=== PATIENT | female | born 1950 | race Caucasian/White ===

== ENCOUNTER 2017-01-23 10:30 | Outpatient (CLI) | payer MEDICARE ==
--- NOTE | 2017-01-23 12:01 | MMO ---
RIGHT DIAGNOSTIC MAMMOGRAM: Date: 01/23/17 COMPARISON: 07/10/16, 06/28/16, 06/28/15, and 11/12/13. HISTORY: 6 month follow-up for density noted within the right breast on prior imaging. FINDINGS: This patient's mammogram was interpreted with the assistance of computer-aided detection. Scattered fibroglandular densities are present. Benign calcifications noted bilaterally. There is a circumscribed stable retroareolar mass in the inferomedial aspect of the retroareolar reg ion, unchanged when compared to numerous prior mammograms. The area of asymmetry identified on prior diagnostic mammography within the medial aspect of the rig ht breast is less conspicuous on today's examination when compared to the most recent prior exam. It has an appearance similar to numerous old prior mammograms. No new findings are seen. IMPRESSION: BIRADS 3: Probably Benign Finding - Short-Interval Follow-Up Suggested Recommend bilateral diagnostic mammogram in 6 months. Facility will notify patient of need for additional imaging services. POS: [facility]
== END 2017-01-23 10:31 | disposition home or self-care (01) ==
LOC: MAMMO 10:30
PROVIDERS: ATTEND Obstetrics & Gynecology
DX: R92.8 Other abnormal and inconclusive findings on diagnostic imaging of breast (principal)
CPT/HCPCS: G0206-RT

== ENCOUNTER 2017-06-11 10:53 | Outpatient (CLI) | payer MEDICARE ==
--- NOTE | 2017-06-11 11:21 | RAD ---
PA AND LATERAL CHEST: History: Dyspnea. Comparison: 05-31-16 FINDINGS: The lung reddy are clear. No infiltrate or vascular congestion. Heart and mediastinum unremarkable. IMPRESSION: No acute abnormality identified. POS: [facility]
== END 2017-06-11 10:54 | disposition home or self-care (01) ==
LOC: RAD 10:53
PROVIDERS: ATTEND Internal Medicine Critical Care Medicine
DX: R06.00 Dyspnea, unspecified (principal)
CPT/HCPCS: 71046

== ENCOUNTER 2017-11-13 09:59 | Outpatient (CLI) | payer MEDICARE | END 2017-11-13 10:00 | disposition home or self-care (01) | LOC: BICMAMMO 09:59 | PROVIDERS: ATTEND Obstetrics & Gynecology | DX: N64.89 Other specified disorders of breast (principal); Z80.3 Family history of malignant neoplasm of breast | CPT/HCPCS: 77066; G0279 ==

== ENCOUNTER 2018-05-15 10:34 | Outpatient (CLI) | payer MEDICARE, OTHER ==
--- NOTE | 2018-05-15 10:58 | RAD ---
TWO VIEWS CHEST: Comparison: 06-11-17 History: Dyspnea. FINDINGS: Two views of the chest show normal sized cardiomediastinal silhouette. There is no evidence of consol idation, mass, or pleural effusion. The bones are unremarkable. IMPRESSION: No evidence of acute cardiopulmonary disease. POS: [facility]
== END 2018-05-15 10:35 | disposition home or self-care (01) ==
LOC: RAD 10:34
PROVIDERS: ATTEND Internal Medicine Critical Care Medicine
DX: R06.00 Dyspnea, unspecified (principal)
CPT/HCPCS: 71046

== ENCOUNTER 2018-08-27 09:02 | Outpatient (CLI) | payer MEDICARE, OTHER ==
--- NOTE | 2018-08-27 12:09 | RAD ---
CHEST TWO VIEWS: 08/27/2018 PROVIDED CLINICAL HISTORY: Dyspnea. COMPARISON: 05/15/2018 FINDINGS: The cardiomediastinal silhouette is within normal limits. The lungs appear clear. No pleural fluid or pneumothorax apparent. IMPRESSION: Stable radiographic appearance of the chest. POS: [facility]
== END 2018-08-27 09:03 | disposition home or self-care (01) ==
LOC: RAD 09:02
PROVIDERS: ATTEND Internal Medicine Critical Care Medicine
DX: R06.00 Dyspnea, unspecified (principal)
CPT/HCPCS: 71046

== ENCOUNTER 2019-02-04 15:21 | Outpatient (CLI) | payer MEDICARE, OTHER ==
--- NOTE | 2019-02-04 15:55 | BD ---
EXAM: DEXA bone density examination HISTORY: Osteophyte versus screening; asymptomatic menopausal state. COMPARISON: None FINDINGS: L1--bone mineral density 0.953 g/sq cm; T score -0.3. Z score 1.5 L2--bone mineral density 1.175 g/sq cm; T score 1.3; Z score 3.4 L3--bone mineral density 1.098 g/sq cm; T score 0.1; Z score 2.3 L4--bone mineral density 0.908 g/sq cm; T score -1.4, Z score 0.9 Total L1-L4--bone mineral density 1.033 g/sq cm; T score -0.1, Z score 2.0 Left femoral neck--bone mineral density0.602; T score -2.2, Z score -0.4 Total proximal left femur--bone mineral density 0.848; T score -0.8, Z score 0.7 This patient has a 10 year WHO fracture risk of a major osteoporotic fracture of 18% and of a hip fra cture of 3.5%. IMPRESSION: Based on the WHO criteria, the patient's bone mineral density is consideredOsteopenic. T he patient is at moderate risk for fracture.
--- NOTE | 2019-02-04 17:01 | MMO ---
Bilateral MAMMO Bilat Screen [facility]. CLINICAL HISTORY: Patient is 68 years old and is seen for screening. The patient has the following family history of breast cancer: maternal grandmother; sister, at age 66 and maternal aunt. The patient has no personal history of cancer. VIEWS: The views performed were: bilateral craniocaudal with tomosynthesis and bilateral mediolateral oblique with tomosynthesis. FILMS COMPARED: The present examination has been compared to prior imaging studies performed at [facility] on 06/28/2015, 06/28/2016, 01/23/2017 and 11/13/2017. This study has been interpreted with the assistance of computer-aided detection. MAMMOGRAM FINDINGS: There are scattered fibroglandular densities. There are no suspicious masses, suspicious calcifications, or new areas of architectural distortion. IMPRESSION: THERE IS NO MAMMOGRAPHIC EVIDENCE OF MALIGNANCY. A ROUTINE FOLLOW-UP MAMMOGRAM IN 1 YEAR IS RECOMMENDED. THE RESULTS OF THIS EXAM WERE SENT TO THE PATIENT. ACR BI-RADS Category 1 - Negative MAMMOGRAPHY NOTE: 1. A negative mammogram report should not delay a biopsy if a dominant of clinically suspicious mass is present. 2. Approximately 10% to 15% of breast cancers are not detected by mammography. 3. Adenosis and dense breasts may obscure an underlying neoplasm. Reported by: LUIS ANTONIO SALDIVAR MD Electonically Signed: [id number]
== END 2019-02-04 15:22 | disposition home or self-care (01) ==
LOC: BICMAMMO 15:21
PROVIDERS: ATTEND Family Medicine
DX: Z12.31 Encounter for screening mammogram for malignant neoplasm of breast (principal); Z13.820 Encounter for screening for osteoporosis; M85.80 Other specified disorders of bone density and structure, unspecified site; Z78.0 Asymptomatic menopausal state; Z80.3 Family history of malignant neoplasm of breast
CPT/HCPCS: 77063; 77067; 77080

== ENCOUNTER 2019-04-30 09:28 | Outpatient (CLI) | payer MEDICARE, OTHER ==
--- NOTE | 2019-04-30 10:20 | RAD ---
PA AND LATERAL CHEST: Date: 04/30/2019 HISTORY: Dyspnea. COMPARISON: 08/27/18 study. FINDINGS: Heart size within normal limits. Aorta is tortuous. Lungs are clear of infiltrates. There is scolioti c change of the spine. IMPRESSION: No active intrathoracic disease. Stable chest. POS: [facility]
== END 2019-04-30 09:29 | disposition home or self-care (01) ==
LOC: RAD 09:28
PROVIDERS: ATTEND Internal Medicine Critical Care Medicine
DX: R06.00 Dyspnea, unspecified (principal)
CPT/HCPCS: 71046

== ENCOUNTER 2019-09-03 15:28 | Outpatient (CLI) | payer MEDICARE, OTHER ==
--- NOTE | 2019-09-03 17:00 | CT ---
CT LUMBAR SPINE WITHOUT CONTRAST: 09/03/19 HISTORY: 68-year-old female with low back pain. FINDINGS: Multilevel degenerative changes are seen manifested by osteophyte formation, facet hypertrophic lucio es and bulging discs. There is levoscoliosis of the lumbar spine. There are bilateral neural foramin al stenosis at L3-4, L4-5, and L5-S1 levels. There is central canal stenosis at L3-4 and L4-5 levels. No fracture, subluxation or bony destruction is seen. There are vascular calcifications. There is colonic diverticulosis. IMPRESSION: Lumbar spondylosis with levoscoliosis and multilevel stenotic changes as discussed above. POS: [facility]
== END 2019-09-03 15:29 | disposition home or self-care (01) ==
LOC: BICCT 15:28
PROVIDERS: ATTEND Family Medicine
DX: M54.5 Low back pain (principal); M47.816 Spondylosis without myelopathy or radiculopathy, lumbar region; M41.9 Scoliosis, unspecified; M48.061 Spinal stenosis, lumbar region without neurogenic claudication; M48.07 Spinal stenosis, lumbosacral region
CPT/HCPCS: 72131

== ENCOUNTER 2019-10-09 12:53 | Outpatient (CLI) | payer MEDICARE, OTHER ==
--- NOTE | 2019-10-09 14:12 | MRI ---
MRI of thethoracic spine: 10/09/2019 COMPARISON:None available HISTORY:Radiculopathy, mid back pain with tightness wrapping around the left aspect of the chest TECHNIQUE: Multiplanar multisequence MR imaging of thethoracic spine without contrast Findings:Sagittal STIR imaging demonstrates no focal area of osseous marrow edema. No anterolisthesis or retrolisthesis is noted within the thoracic spine. There is significant degenerative disc disease within the cervical spine with disc space narrowing, d isc desiccation, and disc bulge, including C5-6 and C6-7 levels, not well characterized on this examination. No significant central canal stenosis is noted within the thoracic spine at any level. There is a sma ll left foraminal disc protrusion at T9-10. Facet hypertrophy on the left at T10-11 causes a moderate degree of left-sided neural foraminal steno sis. There is mild left-sided facet hypertrophy at T11-12 with no associated neural foraminal stenosis. No additional areas of significant neural foraminal stenosis are apparent on this examinati on. No focal area of abnormal signal intensity is identified within the thoracic cord. IMPRESSION:No significant central canal stenosis within the thoracic spine. STIR imaging demonstrates no evidence for fracture. There is significant neural foraminal stenosis on the left at T10-11 on the basis of facet hypertrophy and associated osteophyte encroachment.
--- NOTE | 2019-10-09 14:39 | MRI ---
MR the lumbar spine without contrast: 10/09/2019 History: Lumbar stenosis, low back pain COMPARISON: 11/22/2016 TECHNIQUE: Multiplanar multisequence MR images were obtained of lumbar spine without IV contrast FINDINGS: On the basis of 5 lumbar type vertebral bodies, conus medullaris terminates at [id number] level. Sagittal STIR imaging demonstrates no focal area of osseous marrow edema. T12-L1:Mild bilateral facet hypertrophy, right greater than left. No significant central canal or johnathan ral foraminal stenosis. L1-2:Bilateral facet hypertrophy, left greater than right. Mild bilateral neural foraminal stenosis. No significant central canal stenosis. L2-3:There is disc space narrowing with disc desiccation and anterior osteophyte. Mild bilateral face t hypertrophy, right greater than left. Small right foraminal disc protrusion. Mild right neural foraminal stenosis. No central canal or left neural foraminal stenosis. L3-4:There is disc desiccation and bilateral facet hypertrophy. There is mild right neural foraminal stenosis. No significant central canal or left neural foraminal stenosis. L4-5:Bilateral facet hypertrophy and hypertrophy of the ligamentum flavum, right greater than left. T here is disc space narrowing with disc desiccation and mild disc bulge causing mild central canal stenosis. There is mild/moderate right and moderate left neural foraminal stenosis. L5-S1:Bilateral facet hypertrophy, left greater than right. Mild left neural foraminal stenosis. No c entral canal or right neural foraminal stenosis. Image retroperitoneal structures demonstrateno acute findings. IMPRESSION: Multilevel degenerative change within the lumbar spine as detailed above, most prominent at L4-5.
--- NOTE | 2019-10-09 15:00 | RAD ---
Lumbar spine 4 views: 10/09/2019 COMPARISON: None HISTORY: Back pain FINDINGS: There is a mild degree of mid lumbar spine levoscoliosis. There is disc space narrowing wit h degenerative endplate change at multiple levels, most prominent on the right at L2-3, L3-4, and L4-5. The neutral lateral examination demonstrates mild anterolisthesis of L5 on S1 measuring approximately 4 mm. On the neutral imaging there is retrolisthesis at L2-3 measuring approximately 5 mm. The extension imaging demonstrates no significant change. No significant changes noted on the flexion etienne ging either. Lateral imaging demonstrates prominent disc space narrowing with degenerative endplate change at L2-3 and L4-5. No acute fracture. IMPRESSION: Multilevel lumbar spine degenerative change as described above.
== END 2019-10-09 12:54 | disposition home or self-care (01) ==
LOC: BICMRI 12:53
PROVIDERS: ATTEND Neurological Surgery
DX: M48.061 Spinal stenosis, lumbar region without neurogenic claudication (principal); M47.816 Spondylosis without myelopathy or radiculopathy, lumbar region; M47.817 Spondylosis without myelopathy or radiculopathy, lumbosacral region; M47.24 Other spondylosis with radiculopathy, thoracic region; M48.04 Spinal stenosis, thoracic region
CPT/HCPCS: 72110; 72146; 72148

== ENCOUNTER 2020-03-26 11:56 | Outpatient (CLI) | payer MEDICARE, OTHER ==
--- NOTE | 2020-03-26 13:02 | MMO ---
Bilateral MAMMO Bilat Screen [facility]. CLINICAL HISTORY: Patient is 69 years old and is seen for screening. The patient has the following family history of breast cancer: maternal grandmother; sister, at age 66 and maternal aunt. The patient has no personal history of cancer. VIEWS: The views performed were: bilateral craniocaudal with tomosynthesis and bilateral mediolateral oblique with tomosynthesis. FILMS COMPARED: The present examination has been compared to prior imaging studies performed at [facility] on 06/28/2016, 01/23/2017, 11/13/2017 and 02/04/2019. This study has been interpreted with the assistance of computer-aided detection. MAMMOGRAM FINDINGS: There are scattered fibroglandular densities. There are stable benign appearing calcifications seen in both breasts. There are also vascular calcifications. There are no suspicious masses, suspicious calcifications, or new areas of architectural distortion. IMPRESSION: THERE IS NO MAMMOGRAPHIC EVIDENCE OF MALIGNANCY. A ROUTINE FOLLOW-UP MAMMOGRAM IN 1 YEAR IS RECOMMENDED. THE RESULTS OF THIS EXAM WERE SENT TO THE PATIENT. ACR BI-RADS Category 2 - Benign finding MAMMOGRAPHY NOTE: 1. A negative mammogram report should not delay a biopsy if a dominant of clinically suspicious mass is present. 2. Approximately 10% to 15% of breast cancers are not detected by mammography. 3. Adenosis and dense breasts may obscure an underlying neoplasm. Reported by: SAMANTHA KNAPP MD Electonically Signed: [id number]
== END 2020-03-26 11:57 | disposition home or self-care (01) ==
LOC: BICMAMMO 11:56
PROVIDERS: ATTEND Family Medicine
DX: Z12.31 Encounter for screening mammogram for malignant neoplasm of breast (principal); Z80.3 Family history of malignant neoplasm of breast
CPT/HCPCS: 77063; 77067

== ENCOUNTER 2021-03-28 11:50 | Outpatient (CLI) | payer MEDICARE, OTHER | END 2021-03-28 11:51 | disposition home or self-care (01) | LOC: BICMAMMO 11:50 | PROVIDERS: ATTEND Family Medicine | DX: Z12.31 Encounter for screening mammogram for malignant neoplasm of breast (principal); Z80.3 Family history of malignant neoplasm of breast | CPT/HCPCS: 77063; 77067 ==

== ENCOUNTER 2021-07-27 10:45 | Emergency (ER) | payer OTHER, MEDICARE ==
[2021-07-27 12:56] LABS: #Lymphocytes 1.6 thou/uL (1.20-3.40); #Monocytes 0.2 thou/uL (0.11-0.59); #Neutrophils 8.1 thou/uL (1.40-6.50); %Eosinophils 0.2 % (0.0-10.0); %Lymphocytes 15.8 % (21.0-51.0); %Monocytes 2.2 % (0.0-10.0); %Neutrophils 81.8 % (42.0-75.0); Mean Corpuscular HGB CONC 34.2 g/dL (32.0-36.0); Mean Corpuscular Hemoglobin 32.4 pg (27.0-31.0); Mean Corpuscular Volume 94.6 fL (78.0-98.0); Mean Platelet Volume 7.2 fL (7.4-10.4); Platelet Count 277 thou/uL (130-400); RBC Distribution Width 12.6 % (11.5-14.5); Red Blood Cell (RBC) Count 4.63 mill/uL (4.20-5.40)
[2021-07-27 13:17] LABS: ALT (SGPT) 19 U/L (8-55); AST (SGOT) 18 U/L (5-34); Albumin 4.2 g/dL (3.4-4.8); Alkaline Phosphatase 78 U/L (40-110); Anion Gap 13 mmol/L (10-20); BUN (Urea Nitrogen) 13 mg/dL (9.8-20.1); Bilirubin, Total 0.6 mg/dL (0.2-1.2); Calc. Creatinine Clearance 0 mL/min (70-130); Carbon Dioxide 23 mmol/L (23-31); Chloride 103 mmol/L (98-107); Globulin 3.3 g/dL (2.4-3.5); Glucose 144 mg/dL (83-110); Potassium 4.3 mmol/L (3.5-5.1); Protein, Total 7.5 g/dL (5.8-8.1); Sodium 135 mmol/L (136-145)
== END 2021-07-27 13:39 | disposition home or self-care (01) ==
LOC: ERS 10:45
DX: S06.0X0A Concussion without loss of consciousness, initial encounter (principal); W19.XXXA Unspecified fall, initial encounter; W22.8XXA Striking against or struck by other objects, initial encounter; Y92.480 Sidewalk as the place of occurrence of the external cause; I10 Essential (primary) hypertension; J45.909 Unspecified asthma, uncomplicated; Z86.73 Personal history of transient ischemic attack (TIA), and cerebral infarction without residual deficits; Z79.51 Long term (current) use of inhaled steroids
CPT/HCPCS: 36415; 70450; 80053; 84484; 85025; 93005

== ENCOUNTER 2021-08-15 12:26 | Outpatient (CLI) | payer MEDICARE, OTHER | END 2021-08-15 12:27 | disposition home or self-care (01) | LOC: BICRAD 12:26 | PROVIDERS: ATTEND Family Medicine | DX: S80.11XA Contusion of right lower leg, initial encounter (principal) ==

== ENCOUNTER 2021-11-01 11:50 | Outpatient (CLI) | payer OTHER | END 2021-11-01 11:51 | disposition home or self-care (01) | LOC: DTY/OP 11:50 | PROVIDERS: ATTEND Family Medicine | DX: E66.8 Other obesity (principal); Z68.43 Body mass index [BMI] 50.0-59.9, adult | CPT/HCPCS: 97802 ==

== ENCOUNTER 2022-06-08 11:34 | Outpatient (CLI) | payer MEDICARE, OTHER | END 2022-06-08 11:35 | disposition home or self-care (01) | LOC: BICMAMMO 11:34 | PROVIDERS: ATTEND Family Medicine | DX: Z12.31 Encounter for screening mammogram for malignant neoplasm of breast (principal) | CPT/HCPCS: 77063; 77067 ==

== ENCOUNTER 2022-10-26 12:43 | Outpatient (CLI) | payer MEDICARE, OTHER | END 2022-10-26 12:44 | disposition home or self-care (01) | LOC: BICMRI 12:43 | PROVIDERS: ATTEND Family Medicine | DX: R29.90 Unspecified symptoms and signs involving the nervous system (principal); R90.82 White matter disease, unspecified; G93.9 Disorder of brain, unspecified | CPT/HCPCS: 70551 ==

== ENCOUNTER 2023-07-19 06:55 | Day surgery (SDC) | payer MEDICARE, OTHER ==
[2023-07-16 12:30] VITALS: BMI 35.4
[2023-07-19] MEDS ORDERED: Ketorolac Tromethamine 30 MG (1 mL) VIAL ONE (09:47)
[2023-07-19] MEDS ORDERED: Acetaminophen 500 MG TAB ONE (09:47)
[2023-07-19] MEDS ORDERED: PROPOFOL 20 ML ONE (10:06)
[2023-07-19] MEDS ORDERED: CEFAZOLIN 2 GM VIAL ONE (10:06)
[2023-07-19] MEDS ORDERED: fentaNYL PF 100 MCG/2 ML SYRINGE ONE (10:06)
[2023-07-19] MEDS ORDERED: Sodium Chloride 0.9% 100 ML ONE (10:06)
[2023-07-19] MEDS ORDERED: Isosulfan Blue 50 MG/5 ML VIAL ONE (10:36)
[2023-07-19] MEDS ORDERED: Bupivacaine 0.25% HCL 30 ML VIAL ONE (10:37)
[2023-07-19] MEDS ORDERED: Lidocaine 2% PF 5 ML VIAL ONE (10:37)
[2023-07-19] MEDS ORDERED: EPINEPHrine 1 MG/ML VIAL ONE (10:37)
[2023-07-19] MEDS ORDERED: Midazolam HCl 2 mg/2 ml Vial ONE (10:59)
[2023-07-19] MEDS ORDERED: Dexamethasone 20 MG/5 ML VIAL ONE (11:10)
[2023-07-19] MEDS ORDERED: Ondansetron PF 4 MG/2 ML Vial ONE (11:10)
[2023-07-19] MEDS ORDERED: PHENYLEPHRINE-NS 100 MCG/ML 10 ML SYRINGE ONE (11:10)
== END 2023-07-19 14:30 | disposition home or self-care (01) ==
LOC: SDC 06:55
PROVIDERS: ATTEND Specialist
PROC: 0HBT0ZZ Excision of Right Breast, Open Approach (ICD-10-PCS; principal; 2023-07-19)
DX: C50.411 Malignant neoplasm of upper-outer quadrant of right female breast (principal); I10 Essential (primary) hypertension; J45.909 Unspecified asthma, uncomplicated; F32.A Depression, unspecified; N32.81 Overactive bladder; E66.3 Overweight; M19.90 Unspecified osteoarthritis, unspecified site; J32.9 Chronic sinusitis, unspecified; K21.9 Gastro-esophageal reflux disease without esophagitis; Z98.890 Other specified postprocedural states; Z98.41 Cataract extraction status, right eye; Z88.8 Allergy status to other drugs, medicaments and biological substances; Z79.51 Long term (current) use of inhaled steroids; Z79.899 Other long term (current) drug therapy
CPT/HCPCS: 19281; 19301; 38525; 38900; 76098; 78195; A9541; J0171; Q9968; 88307; 88341; 88342; A4648; J0665; J1100; J1885; J2001; J2250; J2405; J2704; J3490

== ENCOUNTER 2023-08-17 13:17 | Outpatient (CLI) | payer MEDICARE, OTHER | END 2023-08-17 13:18 | disposition home or self-care (01) | LOC: BICMAMMO 13:17 | PROVIDERS: ATTEND Family Medicine | DX: Z13.820 Encounter for screening for osteoporosis (principal); M85.851 Other specified disorders of bone density and structure, right thigh; M85.852 Other specified disorders of bone density and structure, left thigh; Z78.0 Asymptomatic menopausal state | CPT/HCPCS: 77080 ==

== ENCOUNTER 2023-10-05 08:16 | Outpatient (CLI) | payer MEDICARE, OTHER | END 2023-10-05 08:17 | disposition home or self-care (01) | LOC: CT 08:16 | PROVIDERS: ATTEND Family Medicine | DX: S00.03XA Contusion of scalp, initial encounter (principal); M89.8X1 Other specified disorders of bone, shoulder; Z91.81 History of falling | CPT/HCPCS: 70450 ==

== ENCOUNTER 2024-10-20 11:25 | Emergency (ER) | payer OTHER, MEDICARE ==
[2024-10-20] MEDS ORDERED: HYDROcodone/Acetaminophen 10/325 mg Tablet ONE (13:40)
== END 2024-10-20 16:10 | disposition home or self-care (01) ==
LOC: ERS 11:25
DX: S32.009A Unspecified fracture of unspecified lumbar vertebra, initial encounter for closed fracture (principal); S22.081A Stable burst fracture of T11-T12 vertebra, initial encounter for closed fracture; I10 Essential (primary) hypertension; Z86.73 Personal history of transient ischemic attack (TIA), and cerebral infarction without residual deficits; V48.5XXA Car driver injured in noncollision transport accident in traffic accident, initial encounter
CPT/HCPCS: 72131

== ENCOUNTER 2024-10-24 10:49 | Outpatient (CLI) | payer MEDICARE, OTHER | END 2024-10-24 10:50 | disposition home or self-care (01) | LOC: BICRAD 10:49 | PROVIDERS: ATTEND Neurological Surgery | DX: S22.081A Stable burst fracture of T11-T12 vertebra, initial encounter for closed fracture (principal); S32.009A Unspecified fracture of unspecified lumbar vertebra, initial encounter for closed fracture; M47.816 Spondylosis without myelopathy or radiculopathy, lumbar region; M51.369 Other intervertebral disc degeneration, lumbar region without mention of lumbar back pain or lower extremity pain; M41.9 Scoliosis, unspecified | CPT/HCPCS: 72070; 72100 ==